=== PATIENT | female | born 1990 | race Caucasian/White ===

== ENCOUNTER → 2019-12-10 | Outpatient (CLI) | payer BC ==
[2019-12-10 09:30] LABS: HCT 40.6 % (34.0-46.0); HGB 13.1 gm/dL (11.4-16.0); MCH 29.8 pg (25.0-35.0); MCHC 32.3 g/dL (31.0-37.0); MCV 92.1 fL (80.0-100.0); Mean Platelet Volume 8.2; Platelet Count 269 k/uL (150-450); RBC 4.41 m/uL (3.80-5.40); RDW 12.6 % (11.5-15.5); WBC 5.7 k/uL (3.8-10.6)
[2019-12-10 17:33] LABS: African American GFR (CKD) 116.3 (60.0-200.0); Albumin 4.6 g/dL (3.80-4.90); Albumin/Globulin Ratio 2.09 (1.60-3.17); Anion Gap 5.3 mmol/L (4.00-12.00); Calcium 9.6 mg/dL (8.7-10.3); Carbon Dioxide 25.7 mmol/L (21.6-31.8); Globulin 2.2 g/dL (1.6-3.3); Non-African American GFR(CKD) 100.3 (60.0-200.0); Potassium 4.5 mmol/L (3.5-5.5); Total Bilirubin 0.6 mg/dL (0.3-1.2); Total Protein 6.8 g/dL (6.2-8.2)
[2019-12-10 17:41] LABS: Follicle Stimulating Hormone 7.5 mIU/mL; Luteinizing Hormone 14.2 mIU/mL; T4, Free (Free Thyroxine) 0.9 ng/dL (0.80-1.80)
[2019-12-10 20:45] LABS: ACTH 23.7 pg/mL (0.00-45.99)
[2019-12-11 11:45] LABS: Thyroid Peroxidase Antibodies 43.1 U/mL (0.0-60.0)
[2019-12-11 11:59] LABS: Prolactin 8.4 ng/mL (2.8-29.2)
== END | disposition home or self-care (01) ==
LOC: LABWHC1 08:29 → EDBD 08:29
PROVIDERS: ATTEND Internal Medicine Endocrinology, Diabetes & Metabolism
DX: N91.2 Amenorrhea, unspecified (principal); R53.83 Other fatigue
CPT/HCPCS: 36415; 80053; 82024; 82533; 82607; 83001; 83002; 84146; 84439; 84443; 84481; 85027; 86376